=== PATIENT | female | born 1975 | race Caucasian/White ===

== ENCOUNTER 2017-01-31 19:04 | Emergency (ER) | payer MEDICAID ==
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
== END 2017-01-31 19:42 | disposition home or self-care (01) ==
LOC: ER 19:04
DX: S29.019A Strain of muscle and tendon of unspecified wall of thorax, initial encounter (principal); X58.XXXA Exposure to other specified factors, initial encounter; Y92.009 Unspecified place in unspecified non-institutional (private) residence as the place of occurrence of the external cause
CPT/HCPCS: 99282

== ENCOUNTER 2017-02-08 17:17 | Emergency (ER) | payer MEDICAID ==
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
[2017-02-08] MEDS: Diph,Pert(Acell),Tet Vac 0.5 ML SYR IM ONE (17:46)
[2017-02-08] MEDS: PROMETHAZINE HCL 25 MG/ML VIAL IM ONE (17:49)
[2017-02-08] MEDS: HYDROMORPHONE HCL 1 MG/ML CPJ IM ONE (17:50)
[2017-02-08] MEDS: SILVER SULFADIAZINE 25 GM CREAM TOP ONE (18:41)
== END 2017-02-08 18:42 | disposition home or self-care (01) ==
LOC: ER 17:17
DX: T22.321A Burn of third degree of right elbow, initial encounter (principal); T31.0 Burns involving less than 10% of body surface; W29.2XXA Contact with other powered household machinery, initial encounter; Y93.E8 Activity, other personal hygiene
CPT/HCPCS: 16020; 99283; 96372; 99284; J1170; 90715; J2550

== ENCOUNTER 2017-03-10 06:35 | Emergency (ER) | payer MEDICAID ==
--- NOTE | 2017-03-10 07:25 | Emergency Department Record ---
History of Present Illness - General Chief complaint: Dental Stated complaint: DENTAL PAIN Time Seen by Provider: 03/10/17 07:14 Source: Patient Mode of Arrival: Ambulatory Limitations: No limitations - History of Present Illness Initial comments: pt has dental pain in lower l jaw. she has been trying to get in with the dentist. she also c/o swelling in her neck glands. she is getting the rest of her teeth pulled in march. she has taken 2 partial prescriptions of antibiotics that she had at home, keflex and an unnamed one. MD complaint: Tooth pain Onset/Timin -: Days(s) Location: Other Severity: Mild Severity scale (1-10): 8 Quality: Other Consistency: Constant Improves with: None Worsens with: None Context-Epistaxis: History of similar Context- Dental: History of dental caries, Poor dental care Associated Symptoms: Sore throat - Related Data Previous Rx's Medication Instructions Recorded Hydrocodone/Acetaminophen [Damon 1 each PO QID #7 tablet 03/10/17 5-325 Tablet] Penicillin V Potassium 500 mg PO Q6H #30 tab 03/10/17 Allergies Allergy/AdvReac Type Severity Reaction Status Date / Time codeine phosphate Allergy HIVES Verified 02/08/17 17:27 [From Tylenol-Codeine #3] tramadol AdvReac NAUSEA AND Verified 02/08/17 17:27 VOMITING Travel Screening - Travel/Exposure Within Last 30 Days Have you traveled within the last 30 days?: No - Travel/Exposure Within Last Year Have you traveled outside the [place] in the last year?: No - Additonal Travel Details Have you been exposed to anyone with a communicable illness?: No - Travel Symptoms Symptom Screening: None Review of Systems Reviewed: No additional complaints except as noted below Constitutional: Reports: As per HPI. Denies: Chills, Fever, Malaise, Night sweats, Weakness, Weight change Eyes: Reports: As per HPI. Denies: Eye discharge, Eye pain, Photophobia, Vision change ENT: Reports: As per HPI. Denies: Congestion, Dental pain, Ear pain, Epistaxis , Hearing loss, Throat pain Respiratory: Reports: As per HPI. Denies: Cough, Dyspnea, Hemoptysis, Stridor, Wheezes Cardiovascular: Reports: As per HPI. Denies: Arrhythmia, Chest pain, Dyspnea on exertion, Edema, Murmurs, Orthopnea, Palpitations, Paroxysmal nocturnal dyspnea, Rheumatic Fever, Syncope Endocrine: Reports: As per HPI. Denies: Fatigue, Heat or cold intolerance, Polydipsia, Polyuria Gastrointestinal: Reports: As per HPI. Denies: Abdominal pain, Constipation, Diarrhea, Hematemesis, Hematochezia, Melena, Nausea, Vomiting Genitourinary: Reports: As per HPI. Denies: Abnormal menses, Discharge, Dyspareunia, Dysuria, Frequency, Hematuria, Incontinence, Retention, Urgency Musculoskeletal: Reports: As per HPI. Denies: Arthralgia, Back pain, Gout, Joint swelling, Myalgia, Neck pain Skin: Reports: As per HPI. Denies: Bruising, Change in color, Change in hair/ nails, Lesions, Pruritus, Rash Neurological: Reports: As per HPI. Denies: Abnormal gait, Confusion, Headache, Numbness, Paresthesias, Seizure, Tingling, Tremors, Vertigo, Weakness Psychiatric: Reports: As per HPI. Denies: Anxiety, Auditory hallucinations, Depression, Homicidal thoughts, Suicidal thoughts, Visual hallucinations Hematological/Lymphatic: Reports: As per HPI. Denies: Anemia, Blood Clots, Easy bleeding, Easy bruising, Swollen glands Past Medical History - SOCIAL HISTORY Smoking Status: Current every day smoker Alcohol Use: None Drug Use: None - RESPIRATORY Hx Respiratory Disorders: No - CARDIOVASCULAR Hx Cardio Disorders: Yes Hx Irregular Heartbeat: Yes (with antibiotics,excess chocolate, excess H2O) - NEURO Hx Neuro Disorders: No - GI Hx GI Disorders: No - Hx Genitourinary Disorders: No - ENDOCRINE Hx Endocrine Disorders: No - MUSCULOSKELETAL Hx Musculoskeletal Disorders: Yes - PSYCH Hx Psych Problems: No - HEMATOLOGY/ONCOLOGY Hx Hematology/Oncology Disorders: No Family Medical History Any Significant Family History?: No Hx HTN: Father, Mother Physical Exam - General General Appearance: Alert, Oriented x3, Cooperative, Mild distress - Head Head exam: Normal inspection - Eye Eye exam: Normal appearance, PERRL, EOMI Pupils: Normal accommodation - ENT ENT exam: Normal exam, Mucous membranes moist, Normal external ear exam, Normal orophraynx, TM's normal bilaterally Ear exam: Normal external inspection. negative: External canal tenderness Nasal Exam: Normal inspection. negative: Discharge, Sinus tenderness Mouth exam: Normal external inspection, Tongue normal Teeth exam: Dental caries, Dental tenderness # Throat exam: Normal inspection. negative: Tonsillar erythema, Tonsillar exudate - Neck Neck exam: Normal inspection, Full ROM. negative: Tenderness - Respiratory Respiratory exam: Normal lung sounds bilaterally. negative: Respiratory distress - Cardiovascular Cardiovascular Exam: Regular rate, Normal rhythm, Normal heart sounds - GI/Abdominal GI/Abdominal exam: Soft, Normal bowel sounds. negative: Tenderness - Rectal Rectal exam: Deferred - exam: Deferred - Extremities Extremities exam: Normal inspection, Full ROM, Normal capillary refill. negative: Tenderness - Back Back exam: Reports: Normal inspection, Full ROM. Denies: Muscle spasm, Rash noted, Tenderness - Neurological Neurological exam: Alert, CN II-XII intact, Normal gait, Oriented X3 - Psychiatric Psychiatric exam: Normal affect, Normal mood - Skin Skin exam: Dry, Intact, Normal color, Warm Course Vital Signs 03/10/17 06:38 Temperature 98.7 F Pulse Rate 74 Respiratory 20 Rate Blood Pressure 116/66 Pulse Ox 95 Disposition Disposition: Discharge Clinical Impression: Pain due to dental caries Disposition: Home, Self-Care Condition: (1) Good Instructions: Dental Abscess (ED) Additional Instructions: follow up with dentist anita. return sooner if worse. Prescriptions: Hydrocodone/Acetaminophen [Damon 5-325 Tablet] 1 each PO QID #7 tablet Penicillin V Potassium 500 mg PO Q6H #30 tab Forms: Patient Portal Access
== END 2017-03-10 07:36 | disposition home or self-care (01) ==
LOC: ER 06:35
DX: K02.9 Dental caries, unspecified (principal)
CPT/HCPCS: 99282

== ENCOUNTER 2017-03-12 21:22 | Emergency (ER) | payer MEDICAID ==
--- NOTE | 2017-03-12 21:43 | Emergency Department Record ---
History of Present Illness - General Chief Complaint: Numbness Stated Complaint: HEAD INJURY YESTERDAY/FACE FEELS NUMB TODAY Time Seen by Provider: 03/12/17 21:36 Source: Patient Mode of Arrival: Ambulatory Limitations: No limitations - History of Present Illness Initial Comments: The patient woke up today with slight swelling about her L eye and pain with mild numbness. Since it did not get better this evening she wanted to get it checked out. She denies any trauma, injury, POP, visual changes, eye pain or blurred vision. The patient has had a recent dental infection and is on PCN for the last 2 days. Onset/Timin -: Hour(s) History of same: No Place: Home Quality: Numb, Tingling Improves With: None Worsens With: None On Anticoagulants: No Associated Symptoms: Denies other symptoms Treatments Prior to Arrival: Other medication Treatment Prior to Arrival Comment:: motrin 1600 mg at 1600 - Veronica Coma Scale Eye Response: (4) Open spontaneously Motor Response: (6) Obeys commands Verbal Response: (5) Oriented Veronica Total: 15 - Related Data Home Medications: Previous Rx's Medication Instructions Recorded Penicillin V Potassium 500 mg PO Q6H #30 tab 03/10/17 Clindamycin HCl [Cleocin HCl] 300 mg PO QID #28 capsule 03/12/17 Allergies/Adverse Reactions: Allergies Allergy/AdvReac Type Severity Reaction Status Date / Time codeine phosphate Allergy HIVES Verified 03/12/17 21:28 [From Tylenol-Codeine #3] tramadol AdvReac NAUSEA AND Verified 03/12/17 21:28 VOMITING Travel Screening - Travel/Exposure Within Last 30 Days Have you traveled within the last 30 days?: No - Travel/Exposure Within Last Year Have you traveled outside the [place] in the last year?: No - Additonal Travel Details Have you been exposed to anyone with a communicable illness?: No - Travel Symptoms Symptom Screening: None Review of Systems Constitutional: Denies: Chills, Fever Eyes: Denies: Eye discharge ENT: Denies: Congestion Respiratory: Denies: Cough, Dyspnea Past Medical History - SOCIAL HISTORY Smoking Status: Current every day smoker Alcohol Use: None Drug Use: None - RESPIRATORY Hx Respiratory Disorders: No - CARDIOVASCULAR Hx Cardio Disorders: Yes Hx Irregular Heartbeat: Yes (with antibiotics,excess chocolate, excess H2O) - NEURO Hx Neuro Disorders: No - GI Hx GI Disorders: No - Hx Genitourinary Disorders: No - ENDOCRINE Hx Endocrine Disorders: No - MUSCULOSKELETAL Hx Musculoskeletal Disorders: Yes - PSYCH Hx Psych Problems: No - HEMATOLOGY/ONCOLOGY Hx Hematology/Oncology Disorders: No Family Medical History Any Significant Family History?: No Hx HTN: Father, Mother Physical Exam - General General Appearance: Alert, Oriented x3, Cooperative, No acute distress - Head Head exam: Atraumatic, Normocephalic, Normal inspection - Eye Eye exam: PERRL, EOMI, Periorbital tenderness (There is very slight swelling to the L lateral supraorbital area just above the eyebrow. The pain and numbnes are 100% reproducible with palpation of this area. THere is no warmth, erythema , or bite wounds appreciated.), Other. negative: Normal appearance - ENT ENT exam: negative: Normal exam Teeth exam: Dental caries Throat exam: Normal inspection. negative: Tonsillar erythema, Tonsillomegaly - Neck Neck exam: Normal inspection, Full ROM. negative: Lymphadenopathy, Meningismus , Tenderness - Respiratory Respiratory exam: Normal lung sounds bilaterally - Cardiovascular Cardiovascular Exam: Regular rate, Normal rhythm, Normal heart sounds - Extremities Extremities exam: Normal inspection, Full ROM, Normal capillary refill. negative: Tenderness - Neurological Neurological exam: Alert, Normal gait, Oriented X3. negative: Abnormal gait, Altered, Motor sensory deficit Course Vital Signs 03/12/17 21:27 Temperature 98.2 F Pulse Rate 69 Respiratory 24 Rate Blood Pressure 119/60 Pulse Ox 100 - Reevaluation(s) Reevaluation #1: I explained to the patient that it appears the swollen area is causing the pain and numbness. She is to stop the PCN and start Clindamycin and is to see her PCP in 1-2 days for recheck. 03/12/17 21:46 Disposition Disposition: Discharge Clinical Impression: Facial pain Disposition: Home, Self-Care Condition: (1) Good Instructions: Atypical Facial Pain (ED) Additional Instructions: Please stop the PCN and start the Clindamycin. Please use naprosyn for pain and use ice to the swollen area during the day. Please see your PCP for recheck in 1 -2 days and return to the ER if worse. Prescriptions: Clindamycin HCl [Cleocin HCl] 300 mg PO QID #28 capsule Forms: Patient Portal Access Time of Disposition: :49
[2017-03-12] MEDS ORDERED: CLINDAMYCIN 150 MG CAP PO ONE (21:49)
== END 2017-03-12 21:55 | disposition home or self-care (01) ==
LOC: ER 21:22
DX: G50.1 Atypical facial pain (principal); R20.0 Anesthesia of skin; R22.0 Localized swelling, mass and lump, head
CPT/HCPCS: 99282

== ENCOUNTER 2017-08-23 09:00 | Emergency (ER) | payer MEDICAID ==
--- NOTE | 2017-08-23 09:46 | Emergency Department Record ---
History of Present Illness - General Chief complaint: ENT Stated complaint: SORE THROAT Time Seen by Provider: 08/23/17 09:30 Source: Patient, RN notes reviewed Mode of Arrival: Ambulatory - History of Present Illness Initial comments: 3 days of sore lymph nodes under chin and her teeth are gone and no gum soreness. No congestion or cough and no vomiting or diarrhea and no palpable lymph nodes in axillae and groin. patient states she had mono 20 years ago. palpating gum pain upper gum right side and some redness there and swollen Onset/Timin -: Days(s) Location: Throat Severity: Moderate Severity scale (1-10): 8 Quality: Aching Consistency: Constant Improves with: None Worsens with: Swallowing Associated Symptoms: Sore throat - Related Data Previous Rx's Medication Instructions Recorded Naproxen [Naprosyn] 500 mg PO BID #20 tablet 08/23/17 Penicillin V Potassium 500 mg PO QID #40 tablet 08/23/17 Allergies Allergy/AdvReac Type Severity Reaction Status Date / Time codeine phosphate Allergy HIVES Verified 08/23/17 09:01 [From Tylenol-Codeine #3] tramadol AdvReac NAUSEA AND Verified 08/23/17 09:01 VOMITING Travel Screening - Travel/Exposure Within Last 30 Days Have you traveled within the last 30 days?: No - Travel/Exposure Within Last Year Have you traveled outside the [place] in the last year?: No - Additonal Travel Details Have you been exposed to anyone with a communicable illness?: No - Travel Symptoms Symptom Screening: None Review of Systems Reviewed: No additional complaints except as noted below Constitutional: Reports: As per HPI. Denies: Chills, Fever, Malaise, Night sweats, Weakness, Weight change Eyes: Reports: As per HPI. Denies: Eye discharge, Eye pain, Photophobia, Vision change ENT: Reports: As per HPI. Denies: Congestion, Dental pain, Ear pain, Epistaxis , Hearing loss, Throat pain Respiratory: Reports: As per HPI. Denies: Cough, Dyspnea, Hemoptysis, Stridor, Wheezes Cardiovascular: Reports: As per HPI. Denies: Arrhythmia, Chest pain, Dyspnea on exertion, Edema, Murmurs, Orthopnea, Palpitations, Paroxysmal nocturnal dyspnea, Rheumatic Fever, Syncope Endocrine: Reports: As per HPI. Denies: Fatigue, Heat or cold intolerance, Polydipsia, Polyuria Gastrointestinal: Reports: As per HPI. Denies: Abdominal pain, Constipation, Diarrhea, Hematemesis, Hematochezia, Melena, Nausea, Vomiting Genitourinary: Reports: As per HPI. Denies: Abnormal menses, Discharge, Dyspareunia, Dysuria, Frequency, Hematuria, Incontinence, Retention, Urgency Musculoskeletal: Reports: As per HPI. Denies: Arthralgia, Back pain, Gout, Joint swelling, Myalgia, Neck pain Skin: Reports: As per HPI. Denies: Bruising, Change in color, Change in hair/ nails, Lesions, Pruritus, Rash Neurological: Reports: As per HPI. Denies: Abnormal gait, Confusion, Headache, Numbness, Paresthesias, Seizure, Tingling, Tremors, Vertigo, Weakness Psychiatric: Reports: As per HPI. Denies: Anxiety, Auditory hallucinations, Depression, Homicidal thoughts, Suicidal thoughts, Visual hallucinations Hematological/Lymphatic: Reports: As per HPI. Denies: Anemia, Blood Clots, Easy bleeding, Easy bruising, Swollen glands Past Medical History - SOCIAL HISTORY Smoking Status: Current every day smoker Alcohol Use: None Drug Use: None - RESPIRATORY Hx Respiratory Disorders: No - CARDIOVASCULAR Hx Cardio Disorders: Yes Hx Irregular Heartbeat: Yes (with antibiotics,excess chocolate, excess H2O) - NEURO Hx Neuro Disorders: No - GI Hx GI Disorders: No - Hx Genitourinary Disorders: No - ENDOCRINE Hx Endocrine Disorders: No - MUSCULOSKELETAL Hx Musculoskeletal Disorders: Yes - PSYCH Hx Psych Problems: No - HEMATOLOGY/ONCOLOGY Hx Hematology/Oncology Disorders: No Family Medical History Any Significant Family History?: Yes Hx HTN: Father, Mother Physical Exam - General General Appearance: Alert, Oriented x3, Cooperative, No acute distress - Head Head exam: Normal inspection - Eye Eye exam: Normal appearance, PERRL Pupils: Normal accommodation - ENT ENT exam: Normal exam, Mucous membranes moist, Normal external ear exam, Normal orophraynx, TM's normal bilaterally Ear exam: Normal external inspection. negative: External canal tenderness Nasal Exam: Normal inspection. negative: Discharge, Sinus tenderness Mouth exam: Normal external inspection, Tongue normal Teeth exam: Gingival enlargement, Other (teeth gone except one spot upper right gum and it is tender to palpate). negative: Dental caries Throat exam: Normal inspection. negative: Tonsillar erythema, Tonsillar exudate - Neck Neck exam: Normal inspection, Full ROM, Lymphadenopathy (tender lymph nodes under chin and slightly enlarged). negative: Tenderness - Respiratory Respiratory exam: Normal lung sounds bilaterally. negative: Respiratory distress - Cardiovascular Cardiovascular Exam: Regular rate, Normal rhythm, Normal heart sounds - GI/Abdominal GI/Abdominal exam: Soft, Normal bowel sounds. negative: Tenderness - Rectal Rectal exam: Deferred - exam: Deferred - Extremities Extremities exam: Normal inspection, Full ROM, Normal capillary refill. negative: Tenderness - Back Back exam: Reports: Normal inspection, Full ROM. Denies: Muscle spasm, Rash noted, Tenderness - Neurological Neurological exam: Alert, Normal gait, Oriented X3, Reflexes normal - Psychiatric Psychiatric exam: Normal affect, Normal mood - Skin Skin exam: Dry, Intact, Normal color, Warm Course Vital Signs 08/23/17 09:02 Temperature 98 F Pulse Rate 82 Respiratory 18 Rate Blood Pressure 127/103 Pulse Ox 99 Medical Decision Making - Lab Data Result diagrams: 08/23/17 09:45 Disposition Clinical Impression: Lymphadenopathy of head and neck, Dental infection Disposition: Home, Self-Care Condition: (1) Good Instructions: Toothache (ED) Additional Instructions: follow up with a dentist in 2-7 days warm water rinses Prescriptions: Naproxen [Naprosyn] 500 mg PO BID #20 tablet Penicillin V Potassium 500 mg PO QID #40 tablet Forms: Patient Portal Access Time of Disposition: 10:22 Quality - Quality Measures Quality Measures: N/A - Blood Pressure Screening Does Patient Have Any of the Following: No Blood Pressure Classification: Hypertensive Reading Systolic Measurement: 127 Diastolic Measurement: 103 Screening for High Blood Pressure: < First Hypertensive BP, F/U Documented > [ G8950] First Hypertensive Follow-up Interventions: Referral to alternative/primary care provider.
[2017-08-23 09:54] LABS: BASO % 0.7 % (0-6); GRAN % 62.6 % (47-80); HEMATOCRIT 38.6 % (35.0-47.0); HEMOGLOBIN 13.2 gm/dl (11.6-16.0); LYMPH % 25.6 % (16-45); MEAN CELL VOLUME 89.8 fl (81-97); MEAN CORPUSCULAR HEMOGLOBIN 30.7 pg (27-33); MEAN CORPUSCULAR HGB CONC 34.2 g/dl (32-36); MEAN PLATELET VOLUME 9.8 fl (7.4-10.4); MONO % 6.1 % (0-9); PLATELET COUNT 243 K/uL (130-400); RED CELL DISTRIBUTION WIDTH 12.7 % (11.5-14.5); WHITE BLOOD COUNT W/O DIFF 7.4 K/uL (4.2-12.2)
== END 2017-08-23 10:38 | disposition home or self-care (01) ==
LOC: ER 09:00
DX: R59.0 Localized enlarged lymph nodes (principal); J02.9 Acute pharyngitis, unspecified; K04.7 Periapical abscess without sinus; F17.210 Nicotine dependence, cigarettes, uncomplicated
CPT/HCPCS: 85025; 87880; 99283

== ENCOUNTER 2017-11-26 19:08 | Emergency (ER) | payer MEDICAID ==
[2017-11-26 19:41] LABS: URINE APPEARANCE CLEAR; URINE BILIRUBIN NEGATIVE (NEGATIVE); URINE BLOOD NEGATIVE (NEGATIVE); URINE COLOR YELLOW; URINE GLUCOSE (UA) NEGATIVE (NEGATIVE); URINE KETONE NEGATIVE (NEGATIVE); URINE LEUKOCYTE ESTERASE NEGATIVE (NEGATIVE); URINE NITRITE NEGATIVE (NEGATIVE); URINE PROTEIN NEGATIVE (NEGATIVE); URINE UROBILINOGEN 0.2 E.U./dL (0.20 - 1.00)
[2017-11-26 19:42] LABS: HCG,QUALITATIVE URINE NEGATIVE (NEGATIVE)
--- NOTE | 2017-11-26 19:47 | Emergency Department Record ---
History of Present Illness - General Chief Complaint: General Stated Complaint: NAUSEA,SINUS CONGESTION Time Seen by Provider: 11/26/17 19:24 Source: Patient Mode of Arrival: Ambulatory Limitations: No limitations - History of Present Illness Initial comments: The patient is here due to a mild ST, sinus congestion, nausea, intermittent vomiting and chronic back pain for 3 days. She states the nausea and vomiting have resolved and she is mainly here for a work note. The patient presently denies any AP, fever, chills, or dysuria. She is having some low back pain but that is chronic. There is no fever, chills, leg numbness, weakness or any bowel or bladder issues. Onset/Timin -: Days(s) - [place] Coma Scale Eye Response: (4) Open spontaneously Motor Response: (6) Obeys commands Verbal Response: (5) Oriented Veronica Total: 15 - Related Data Previous Rx's Medication Instructions Recorded Prednisone [Prednisone 20Mg] 40 mg PO DAILY #6 tab 11/26/17 Allergies Allergy/AdvReac Type Severity Reaction Status Date / Time codeine phosphate Allergy HIVES Unverified 09/06/17 08:13 [From Tylenol-Codeine #3] tramadol AdvReac NAUSEA AND Unverified 09/06/17 08:13 VOMITING Travel Screening - Travel/Exposure Within Last 30 Days Have you traveled within the last 30 days?: No - Travel Symptoms Symptom Screening: Headache Review of Systems Constitutional: Reports: Malaise. Denies: Chills, Fever Eyes: Denies: Eye discharge ENT: Reports: Congestion. Denies: Dental pain Respiratory: Denies: Cough, Dyspnea Past Medical History - SOCIAL HISTORY Smoking Status: Current every day smoker Alcohol Use: None Drug Use: None - RESPIRATORY Hx Respiratory Disorders: No - CARDIOVASCULAR Hx Cardio Disorders: Yes Hx Irregular Heartbeat: Yes (with antibiotics,excess chocolate, excess H2O) - NEURO Hx Neuro Disorders: No - GI Hx GI Disorders: No - Hx Genitourinary Disorders: No - ENDOCRINE Hx Endocrine Disorders: No - MUSCULOSKELETAL Hx Musculoskeletal Disorders: Yes - PSYCH Hx Psych Problems: No - HEMATOLOGY/ONCOLOGY Hx Hematology/Oncology Disorders: No Family Medical History Any Significant Family History?: Yes Hx HTN: Father, Mother Physical Exam - General General Appearance: Alert, Oriented x3, Cooperative, No acute distress - Head Head exam: Atraumatic, Normocephalic, Normal inspection - Eye Eye exam: Normal appearance, PERRL - ENT ENT exam: Mucous membranes moist, TM's normal bilaterally. negative: Mucous membranes dry, Normal orophraynx Throat exam: Tonsillar erythema (Very mild.). negative: Normal inspection, Tonsillomegaly, Tonsillar exudate, R peritonsillar mass, L peritonsillar mass - Neck Neck exam: Normal inspection, Full ROM. negative: Lymphadenopathy, Meningismus , Tenderness - Respiratory Respiratory exam: Normal lung sounds bilaterally. negative: Respiratory distress - Cardiovascular Cardiovascular Exam: Regular rate, Normal rhythm, Normal heart sounds - GI/Abdominal GI/Abdominal exam: Soft, Normal bowel sounds. negative: Tenderness - Extremities Extremities exam: Normal inspection, Full ROM, Normal capillary refill. negative: Tenderness - Back Back exam: Reports: Normal inspection, Full ROM. Denies: Muscle spasm, Rash noted, Tenderness, Vertebral tenderness - Neurological Neurological exam: Alert, Normal gait, Reflexes normal. negative: Abnormal gait , Altered, Motor sensory deficit Course Vital Signs 11/26/17 19:16 Temperature 98.0 F Pulse Rate 86 Respiratory 18 Rate Blood Pressure 125/79 Pulse Ox 98 - Reevaluation(s) Reevaluation #1: I did explain to the patient that she appears very stable and healthy at this time. She is to take the Prednisone and see her PCP in 3 days as planned. 11/26/17 19:50 Medical Decision Making - Lab Data Lab Results 11/26/17 Range/Units 19:42 Urine Color Yellow Urine Appearance Clear Urine pH 7.0 (5.0-8.0) Ur Specific [place] 1.010 (1.002-1.030) Urine Protein Negative (NEGATIVE) Urine Glucose (UA) Negative (NEGATIVE) Urine Ketones Negative (NEGATIVE) Urine Blood Negative (NEGATIVE) Urine Nitrite Negative (NEGATIVE) Urine Bilirubin Negative (NEGATIVE) Urine Urobilinogen 0.2 (0.20 - 1.00) E.U./dL Ur Leukocyte Esterase Negative (NEGATIVE) Urine HCG, Qual Negative (NEGATIVE) Disposition Disposition: Discharge Clinical Impression: Vomiting Qualifiers: Vomiting Intractability: unspecified Nausea presence: with nausea Disposition: Home, Self-Care Condition: (2) Stable Instructions: Viral Syndrome (ED) Additional Instructions: Please use Tylenol or Motrin for pain and take the Prednisone as directed for your throat. Please see your family doctor in 3 days as planned and return to the ER for any worsening issues. Prescriptions: Prednisone [Prednisone 20Mg] 40 mg PO DAILY #6 tab Forms: Patient Portal Access Time of Disposition: 19:47 Quality - Quality Measures Quality Measures: N/A - Blood Pressure Screening View Details: Yes Does Patient Have Any of the Following: No Blood Pressure Classification: Pre-Hypertensive BP Reading Systolic Measurement: 125 Diastolic Measurement: 79 Screening for High Blood Pressure: < Pre-Hypertensive BP, F/U Documented > [ G8950] Pre-Hypertensive Follow-up Interventions: Referral to alternative/primary care provider.
== END 2017-11-26 19:52 | disposition home or self-care (01) ==
LOC: ER 19:08
DX: R11.2 Nausea with vomiting, unspecified (principal); J02.9 Acute pharyngitis, unspecified; R09.81 Nasal congestion; F17.210 Nicotine dependence, cigarettes, uncomplicated
CPT/HCPCS: 81003; 81025; 99282

== ENCOUNTER 2017-12-02 17:13 | Emergency (ER) | payer MEDICAID ==
[2017-12-02] MEDS ORDERED: ACETAMINOPHEN 325 MG TAB PO ONE (17:40)
--- NOTE | 2017-12-02 18:15 | Emergency Department Record ---
History of Present Illness - General Chief complaint: ENT Stated complaint: MOUTH PAIN Time Seen by Provider: 12/02/17 17:36 Source: Patient Mode of Arrival: Ambulatory Limitations: No limitations - History of Present Illness Initial comments: The patient is here due to a one day hx of a ST mainly on the R side. She denies any fever, voice changes, ear pain, cough or congestion. She was in the ER 7 days ago for the same thing and was treated with prednisone. MD complaint: Sore throat Onset/Timin -: Days(s) Severity: Moderate Severity scale (1-10): 9 Quality: Sharp Consistency: Constant Improves with: None Worsens with: Eating, Movement Context- Dental: Other Associated Symptoms: Other - Related Data Home Medications Medication Instructions Recorded Confirmed Last Taken No Home Med [NO HOME MEDS] 12/02/17 12/02/17 Unknown Allergies Allergy/AdvReac Type Severity Reaction Status Date / Time codeine phosphate Allergy HIVES Verified 12/02/17 17:31 [From Tylenol-Codeine #3] tramadol AdvReac NAUSEA AND Verified 12/02/17 17:31 VOMITING Travel Screening - Travel/Exposure Within Last 30 Days Have you traveled within the last 30 days?: No - Travel/Exposure Within Last Year Have you traveled outside the [place] in the last year?: No - Additonal Travel Details Have you been exposed to anyone with a communicable illness?: No - Travel Symptoms Symptom Screening: None Review of Systems Constitutional: Denies: Chills, Fever Past Medical History - SOCIAL HISTORY Smoking Status: Current every day smoker Alcohol Use: None Drug Use: None - RESPIRATORY Hx Respiratory Disorders: No - CARDIOVASCULAR Hx Cardio Disorders: Yes Hx Irregular Heartbeat: Yes (with antibiotics,excess chocolate, excess H2O) - NEURO Hx Neuro Disorders: No - GI Hx GI Disorders: No - Hx Genitourinary Disorders: No - ENDOCRINE Hx Endocrine Disorders: No - MUSCULOSKELETAL Hx Musculoskeletal Disorders: Yes - PSYCH Hx Psych Problems: No - HEMATOLOGY/ONCOLOGY Hx Hematology/Oncology Disorders: No Family Medical History Any Significant Family History?: Yes Hx HTN: Father, Mother Physical Exam - General General Appearance: Alert, Oriented x3, Cooperative, No acute distress - Head Head exam: Atraumatic, Normocephalic, Normal inspection - Eye Eye exam: Normal appearance, PERRL, EOMI - ENT ENT exam: TM's normal bilaterally. negative: Normal exam, Normal orophraynx Throat exam: Tonsillar erythema (very mild.). negative: Normal inspection, Tonsillomegaly, Tonsillar exudate, R peritonsillar mass, L peritonsillar mass - Neck Neck exam: Normal inspection, Full ROM. negative: Lymphadenopathy (There is tenderness to the R submandibular region but no swelling, erythema or lymph node enlargement is appreciated.), Meningismus, Tenderness, Thyromegaly - Respiratory Respiratory exam: Normal lung sounds bilaterally. negative: Respiratory distress - Cardiovascular Cardiovascular Exam: Regular rate, Normal rhythm, Normal heart sounds Course Vital Signs 12/02/17 17:31 Temperature 97.9 F Pulse Rate 77 Respiratory 20 Rate Blood Pressure 117/72 Pulse Ox 99 - Reevaluation(s) Reevaluation #1: The patient is doing well at this time. She denies any new symptoms or issues. She has no POP, SOB, TYLER, or visual changes. I explained to her that the xray and PE appear normal. We will place the patient on Keflex and have her F/U with her PCP next week. 12/02/17 18:22 Medical Decision Making - Data Complexity MDM Data: X-Ray Ordered and/or Reviewed - Radiology Data Radiology results: Report reviewed (ST Neck: Neg per Rad.) Disposition Disposition: Discharge Clinical Impression: Submandibular gland tenderness Disposition: Home, Self-Care Condition: (2) Stable Instructions: Pharyngitis (ED) Additional Instructions: Please use Tylenol or Motrin for pain and take Keflex 500 mg TID for 7 days. Please see your family doctor in 3 days for recheck. Return to the ER for any worsening symptoms. Forms: Patient Portal Access Time of Disposition: 18:24 Quality - Quality Measures Quality Measures: N/A - Blood Pressure Screening View Details: Yes Does Patient Have Any of the Following: No Blood Pressure Classification: Normal BP Reading Systolic Measurement: 117 Diastolic Measurement: 72 Screening for High Blood Pressure: < Normal BP, F/U Not Required > [G8783]
--- NOTE | 2017-12-03 17:56 | RADIOLOGY REPORT ---
EXAM: NECK, SOFT TISSUE HISTORY: THROAT PAIN, RIGHT SIDE OF THROAT. TECHNIQUE: AP and lateral views of the neck obtained for purposes of soft tissue evaluation. COMPARISON: No prior soft tissue neck study with which to compare. FINDINGS: The patient appears to be edentulous. Slight reversal of the normal cervical lordosis is likely just due to positioning or spasm. No prevertebral soft tissue swelling is evident. The cervical intervertebral disc spaces are maintained. Epiglottis is of normal size. No distention of the hypopharynx or narrowing in the subglottic airway identified. IMPRESSION: SOFT TISSUES IN THE NECK APPEAR ESSENTIALLY NEGATIVE, DESCRIBED ABOVE. JOB NUMBER: [id number] MTDD
== END 2017-12-02 18:30 | disposition home or self-care (01) ==
LOC: ER 17:13
DX: K11.8 Other diseases of salivary glands (principal); F17.210 Nicotine dependence, cigarettes, uncomplicated
CPT/HCPCS: 70360; 99283